=== PATIENT | male | born 1965 | race Caucasian/White ===

== ENCOUNTER 2020-04-18 00:31 | Emergency (ER) | payer OTHER ==
[~2020-04-18] VITALS: Ht 182.9 cm; Wt 81.4 kg
[2020-04-18 00:37] VITALS: BP 154/94
[2020-04-18] MEDS ORDERED: ONDANSETRON ODT 4 MG ONE ×2 (00:54→01:01)
[2020-04-18] MEDS ORDERED: AMOXICILLIN 500 MG CAPSULE ONE ×2 (00:54→01:00)
[2020-04-18] MEDS ORDERED: ONDANSETRON ODT 4 MG PO ONE (01:00)
[2020-04-18] MEDS ORDERED: OXYcodone/APAP 5/325MG TABLET PO ONE (01:00)
[2020-04-18] MEDS ORDERED: AMOXICILLIN 500 MG CAPSULE PO ONE (01:00)
[2020-04-18] MEDS ORDERED: OXYcodone/APAP 5/325MG TABLET ONE (01:01)
--- NOTE | 2020-04-18 01:06 | NUR ---
PT GIVEN DISCHARGE INSTRUCTIONS AND MEDICATIONS PRIOR TO DISCHARGE. PT VERBALIZED UNDERSTANDING. VSS. AMBULATORY.
== END 2020-04-18 01:37 | disposition home or self-care (01) ==
LOC: ED 00:45
DX: K08.89 Other specified disorders of teeth and supporting structures (principal); E11.9 Type 2 diabetes mellitus without complications; Z85.038 Personal history of other malignant neoplasm of large intestine
CPT/HCPCS: 99284; Q0162